=== PATIENT | female | born 2000 ===

== ENCOUNTER 2019-04-09 03:45 | Inpatient (IN) | payer MEDICAID ==
[2019-04-09] MEDS ORDERED: Butorphanol 1 MG/ML SDV IVPUSH PRN (14:44)
[2019-04-09] MEDS ORDERED: Sodium Chloride 0.9% 10 ML SDV IV PRN (14:44)
[2019-04-09] MEDS ORDERED: Water For Irrigation,Sterile 1,000 ML Container IRR PRN (14:44)
[2019-04-09] MEDS ORDERED: Sodium Chloride 0.9% 10 ML Syringe FLUSH PRN (14:44)
[2019-04-09] MEDS ORDERED: Nalbuphine 10 MG/1 ML Vial IVPUSH PRN (14:44)
[2019-04-09] MEDS ORDERED: Methylergonovine 0.2 MG/1 ML Amp IM PRN (14:44)
[2019-04-09] MEDS ORDERED: Tranexamic Acid 1,000 MG in Sodium Chloride 0.9% 100 ML IV PRN (14:44)
[2019-04-09] MEDS ORDERED: Carboprost Tromethamine 250 MCG/1 ML Amp IM PRN (14:44)
[2019-04-09] MEDS ORDERED: Terbutaline 1 MG/ML SDV SUBCUT PRN (14:44)
[2019-04-09] MEDS ORDERED: Sodium Chloride 0.9% 2.5 ML Syringe FLUSH PRN (14:44)
[2019-04-09] MEDS ORDERED: Misoprostol 200 MCG Tab PO PRN (14:44)
[2019-04-09] MEDS ORDERED: Lidocaine 1% 50 ML MDV INJECT PRN (14:44)
[2019-04-09] MEDS ORDERED: Oxytocin/0.9 % Sodium Chloride 30 UNIT/500 ML BAG IV SCH ×2 (14:45)
[2019-04-09] MEDS: Lactated Ringers 1,000 ML IV SCH ×3 (15:35→23:29)
[2019-04-09] MEDS ORDERED: Oxytocin/0.9 % Sodium Chloride 30 UNIT/500 ML BAG ONE (15:38)
[2019-04-09] MEDS ORDERED: fentaNYL 100 MCG/2 ML SDV ONE (21:41)
--- NOTE | 2019-04-09 22:33 | PCM.PREANE ---
Preanesthetic Assessment - Anesthesia/Transfusion/Family Hx Anesthesia History: No Prior Anesthesia Family History of Anesthesia Reaction: No Transfusion History: Unknown Intubation History: Unknown - Review of Systems General: No Symptoms Pulmonary: No Symptoms Cardiovascular: No Symptoms Gastrointestinal: Abdominal Pain (labor pain) Neurological: No Symptoms Other: Reports: None - Physical Assessment Height: 5 ft 6 in Weight: 96.162 kg ASA Class: 2 Mental Status: Alert & Oriented x3 Airway Class: Mallampati = 2 Dentition: Reports: Normal Dentition Thyro-Mental Finger Breadths: 3 Mouth Opening Finger Breadths: 3 ROM/Head Extension: Full Lungs: Clear to Auscultation, Normal Respiratory Effort Cardiovascular: Regular Rate, Regular Rhythm - Lab Values: Laboratory Last Values WBC 14.46 K/uL (4.0-11.0) H 04/09/19 15:03 RBC 4.41 M/uL (4.30-5.90) 04/09/19 15:03 Hgb 13.5 g/dL (12.0-16.0) 04/09/19 15:03 Hct 39.8 % (36.0-46.0) 04/09/19 15:03 MCV 90.2 fL (80.0-98.0) 04/09/19 15:03 MCH 30.6 pg (27.0-32.0) 04/09/19 15:03 MCHC 33.9 g/dL (31.0-37.0) 04/09/19 15:03 RDW Std Deviation 44.6 fl (28.0-62.0) 04/09/19 15:03 RDW Coeff of Joanna 14 % (11.0-15.0) 04/09/19 15:03 Plt Count 256 K/uL (150-400) 04/09/19 15:03 MPV 11.60 fL (7.40-12.00) 04/09/19 15:03 Nucleated RBC % 0.0 /100WBC 04/09/19 15:03 Nucleated RBCs # 0 K/uL 04/09/19 15:03 Blood Type O POSITIVE 04/09/19 15:03 Antibody Screen NEGATIVE 04/09/19 15:03 - Allergies Allergies/Adverse Reactions: Allergies Allergy/AdvReac Type Severity Reaction Status Date / Time Penicillins Allergy Nausea Verified 04/09/19 15:29 - Blood Blood Available: No - Anesthesia Plan Pre-Op Medication Ordered: None - Acknowledgements Anesthesia Type Planned: Epidural Pt an Appropriate Candidate for the Planned Anesthesia: Yes Alternatives and Risks of Anesthesia Discussed w Pt/Guardian: Yes Pt/Guardian Understands and Agrees with Anesthesia Plan: Yes PreAnesthesia Questionnaire - Past Health History Medical/Surgical History: Denies 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 Smoking Status *Q: Never Smoker Second Hand Smoke Exposure: No Recreational Drug Use History: No - CURRENT (IN HOUSE) MEDS Current Meds: Current Medications Butorphanol Tartrate (Stadol) 1 mg IVPUSH Q1H PRN PRN Reason: Pain Carboprost Tromethamine (Hemabate Ds) 250 mcg IM ASDIRECTED PRN PRN Reason: Post Hemorrhage Lactated Ringer's (Ringers, Lactated) 1,000 mls @ 150 mls/hr IV ASDIRECTED DWAIN Last Admin: 04/09/19 21:50 Dose: 150 mls/hr Oxytocin/Sodium Chloride (Oxytocin 30 Unit/500 Ml-Ns) 30 unit in 500 mls @ 500 mls/hr IV TITRATE DWAIN Oxytocin/Sodium Chloride (Oxytocin 30 Unit/500 Ml-Ns) 30 unit in 500 mls @ 2 mls/hr IV TITRATE DWAIN; Protocol Last Titration: 04/09/19 19:08 Dose: 8 munits/min, 8 mls/hr Tranexamic Acid 1,000 mg/ (Sodium Chloride) 110 mls @ 660 mls/hr IV ONETIME PRN PRN Reason: Bleeding Lidocaine HCl (Xylocaine 1%) 50 ml INJECT ONETIME PRN PRN Reason: Laceration repair Methylergonovine Maleate (Methergine) 0.2 mg IM ASDIRECTED PRN PRN Reason: Post Hemorrhage Misoprostol (Cytotec) 200 mcg PO ONETIME PRN PRN Reason: Post Hemorrhage Nalbuphine HCl (Nubain) 10 mg IVPUSH Q1H PRN PRN Reason: Pain (severe 7-10) Sodium Chloride (Saline Flush) 10 ml FLUSH ASDIRECTED PRN PRN Reason: Keep Vein Open Sodium Chloride (Saline Flush) 2.5 ml FLUSH ASDIRECTED PRN PRN Reason: Keep Vein Open Sodium Chloride (Normal Saline) 10 ml IV ASDIRECTED PRN PRN Reason: IV Use Sterile Water (Sterile Water For Irrigation) 1,000 ml IRR ASDIRECTED PRN PRN Reason: delivery Terbutaline Sulfate (Brethine) 0.25 mg SUBCUT ASDIRECTED PRN PRN Reason: Tacysystole Discontinued Medications Fentanyl (Sublimaze) Confirm Administered Dose 100 mcg .ROUTE .STK-MED ONE Stop: 04/09/19 21:42 Oxytocin/Sodium Chloride (Oxytocin 30 Unit/500 Ml-Ns) Confirm Administered Dose 30 unit in 500 mls @ as directed .ROUTE .STK-MED ONE Stop: 04/09/19 15:39
[2019-04-10] MEDS ORDERED: Acetaminophen 500 MG Tab PO PRN ×2 (04:28)
[2019-04-10] MEDS ORDERED: Ibuprofen 800 MG Tab PO PRN (04:28)
[2019-04-10] MEDS ORDERED: Benzocaine/Menthol 20%-0.5% Spray 78 GM Cannister TOP PRN (04:28)
[2019-04-10] MEDS ORDERED: Bisacodyl 10 MG Supp RECTAL PRN (04:28)
[2019-04-10] MEDS ORDERED: Docusate Sodium 100 MG Cap PO PRN (04:28)
[2019-04-10] MEDS ORDERED: Lanolin 100% Cream 7 GM Tube TOP PRN (04:28)
[2019-04-10] MEDS ORDERED: Ibuprofen 400 MG Tab PO PRN (04:28)
[2019-04-10] MEDS ORDERED: Witch Hazel Medicated Pads 40/Jar TOP PRN (04:28)
--- NOTE | 2019-04-10 04:39 | PCM.DEL ---
L & D Note - General Info Date of Service: 04/10/19 - Delivery Note Labor: Induced by ARM, Induced by Oxytocin Delivery Outcome: Livebirth Infant Delivery Method: Spontaneous Vaginal Delivery-Single Anesthesia Type: Epidural Amniotic Fluid Description: Clear Laceration: 1st Degree, Perineal Suture type: Vicryl Suture size: 3-0 Placenta: Intact, Spontaneous Cord: 3 Vessels Estimated Blood Loss: 300 Resuscitation Needed: No : Suctioned Provider: Sangeetha Florence Score 1 min: 8 Score 5 min: 9 Delivery Comments (Free Text/Narrative):: 19yo at 40w6d admitted for induction of labor due to oligohydraminos. Patient was induced with pitocin and AROM and progressed to 10/100/+1. Patient pushed with contractions with descent to 10/100/+3. head delivered over intact perineum in occiput anterior position. No nuchal cord was noted. head restituted ROT. Anterior shoulder delivered easily, followed by posterior shoulder and the remaining body. The baby was crying and pink immediately after delivery and moving all extremities. Baby was placed on maternal chest. Cord was clamped and cut after 60 seconds and no longer pulsating. Cord gases were obtained. Placenta was delivered with gentle traction. First-degree perineal laceration was noticed. 3-0 Vicryl was used to repair the laceration in the usual fashion. Bimanual exam was performed and clots removed from the lower uterine segment. Fundus was firm and at the umbilicus. Bleeding was minimal. The patient tolerated the procedure well, was given care instructions. - General Info Date of Service: 04/10/19 - Patient Data Weight - Most Recent: 212 lb Lab Results Last 24 Hours: Laboratory Results - last 24 hr 04/09/19 04/09/19 Range/Units 15:03 15:03 WBC 14.46 H (4.0-11.0) K/uL RBC 4.41 (4.30-5.90) M/uL Hgb 13.5 (12.0-16.0) g/dL Hct 39.8 (36.0-46.0) % MCV 90.2 (80.0-98.0) fL MCH 30.6 (27.0-32.0) pg MCHC 33.9 (31.0-37.0) g/dL RDW Std Deviation 44.6 (28.0-62.0) fl RDW Coeff of Joanna 14 (11.0-15.0) % Plt Count 256 (150-400) K/uL MPV 11.60 (7.40-12.00) fL Nucleated RBC % 0.0 /100WBC Nucleated RBCs # 0 K/uL Blood Type O POSITIVE Antibody Screen NEGATIVE Med Orders - Current: Current Medications Acetaminophen (Tylenol Extra Strength) 500 mg PO Q4H PRN PRN Reason: Pain Acetaminophen (Tylenol Extra Strength) 1,000 mg PO Q4H PRN PRN Reason: Pain Benzocaine/Menthol (Dermoplast Pain Relief 20%-0.5% [place]) 78 gm TOP ASDIRECTED PRN PRN Reason: Perineal Comfort Measure Bisacodyl (Dulcolax) 10 mg RECTAL ONETIME PRN PRN Reason: Constipation Butorphanol Tartrate (Stadol) 1 mg IVPUSH Q1H PRN PRN Reason: Pain Carboprost Tromethamine (Hemabate Ds) 250 mcg IM ASDIRECTED PRN PRN Reason: Post Hemorrhage Docusate Sodium (Colace) 100 mg PO BID PRN PRN Reason: Constipation Emollient Ointment (Lansinoh Hpa) 0 gm TOP ASDIRECTED PRN PRN Reason: Sore Nipples Lactated Ringer's (Ringers, Lactated) 1,000 mls @ 150 mls/hr IV ASDIRECTED DWAIN Last Admin: 04/09/19 23:29 Dose: 150 mls/hr Oxytocin/Sodium Chloride (Oxytocin 30 Unit/500 Ml-Ns) 30 unit in 500 mls @ 500 mls/hr IV TITRATE DWAIN Oxytocin/Sodium Chloride (Oxytocin 30 Unit/500 Ml-Ns) 30 unit in 500 mls @ 2 mls/hr IV TITRATE [facility]; Protocol Last Titration: 04/10/19 03:45 Dose: 999 munits/min, 999 mls/hr Tranexamic Acid 1,000 mg/ (Sodium Chloride) 110 mls @ 660 mls/hr IV ONETIME PRN PRN Reason: Bleeding Ibuprofen (Motrin) 400 mg PO Q4H PRN PRN Reason: Pain Ibuprofen (Motrin) 800 mg PO Q6H PRN PRN Reason: Pain Lidocaine HCl (Xylocaine 1%) 50 ml INJECT ONETIME PRN PRN Reason: Laceration repair Methylergonovine Maleate (Methergine) 0.2 mg IM ASDIRECTED PRN PRN Reason: Post Hemorrhage Misoprostol (Cytotec) 200 mcg PO ONETIME PRN PRN Reason: Post Hemorrhage Nalbuphine HCl (Nubain) 10 mg IVPUSH Q1H PRN PRN Reason: Pain (severe 7-10) Sodium Chloride (Saline Flush) 10 ml FLUSH ASDIRECTED PRN PRN Reason: Keep Vein Open Sodium Chloride (Saline Flush) 2.5 ml FLUSH ASDIRECTED PRN PRN Reason: Keep Vein Open Sodium Chloride (Normal Saline) 10 ml IV ASDIRECTED PRN PRN Reason: IV Use Sterile Water (Sterile Water For Irrigation) 1,000 ml IRR ASDIRECTED PRN PRN Reason: delivery Last Admin: 04/10/19 03:37 Dose: 1,000 ml Terbutaline Sulfate (Brethine) 0.25 mg SUBCUT ASDIRECTED PRN PRN Reason: Tacysystole [place] Nichole (Tucks) 1 pad TOP ASDIRECTED PRN PRN Reason: comfort care Discontinued Medications Fentanyl (Sublimaze) Confirm Administered Dose 100 mcg .ROUTE .STK-MED ONE Stop: 04/09/19 21:42 Oxytocin/Sodium Chloride (Oxytocin 30 Unit/500 Ml-Ns) Confirm Administered Dose 30 unit in 500 mls @ as directed .ROUTE .STK-MED ONE Stop: 04/09/19 15:39 - Problem List Review Problem List Initiated/Reviewed/Updated: Yes - My Orders Last 24 Hours: My Active Orders 04/10/19 04:28 Urinary Catheter Removal [RC] Per Unit Routine Acetaminophen [Tylenol Extra Strength] 1,000 mg PO Q4H PRN Acetaminophen [Tylenol Extra Strength] 500 mg PO Q4H PRN Benzocaine/Menthol [Dermoplast Pain Relief 20%-0.5% [place]] 78 gm TOP ASDIRECTED PRN Bisacodyl [Dulcolax] 10 mg RECTAL ONETIME PRN Docusate Sodium [Colace] 100 mg PO BID PRN Ibuprofen [Motrin] 400 mg PO Q4H PRN Ibuprofen [Motrin] 800 mg PO Q6H PRN Lanolin [Lansinoh HPA] See Dose Instructions TOP ASDIRECTED PRN Witch Nichole [Tucks] 1 pad TOP ASDIRECTED PRN Breast Pump [WOMSER] Per Unit Routine 04/10/19 04:29 Patient Status [ADT] Routine May Shower [RC] ASDIRECTED Up ad Devora [RC] ASDIRECTED Vital Signs [RC] PER UNIT ROUTINE Assess Lochia [WOMSER] Per Unit Routine Assess Uterine Involution [WOMSER] Per Unit Routine Ice Therapy [OM.PC] Per Unit Routine Perineal Care [OM.PC] Per Unit Routine Peripheral IV Discontinue [OM.PC] Routine Sitz Bath [OM.PC] Per Unit Routine 04/10/19 Breakfast Regular Diet [DIET] 04/11/19 05:11 HEMOGLOBIN/HEMATOCRIT,HH [HEME] Timed
--- NOTE | 2019-04-10 09:35 | PCM48HPAN ---
Post Anesthesia Note - EVALUATION WITHIN 48HRS OF ANESTHETIC Vital Signs in Normal Range: Yes Patient Participated in Evaluation: Yes Respiratory Function Stable: Yes Airway Patent: Yes Cardiovascular Function Stable: Yes Hydration Status Stable: Yes Pain Control Satisfactory: Yes Nausea and Vomiting Control Satisfactory: Yes Mental Status Recovered: Yes Vital Signs: Last Vital Signs Temp 36.5 C 04/10/19 08:00 Pulse 87 04/10/19 08:00 Resp 20 04/10/19 08:00 BP 130/76 04/10/19 08:00 Pulse Ox 97 04/10/19 08:00 - COMMENTS/OBSERVATIONS Free Text/Narrative:: no anesthesia problems
--- NOTE | 2019-04-11 08:39 | PCM.PNPP ---
- General Info Date of Service: 04/11/19 Functional Status: Reports: Pain Controlled, Tolerating Diet, Ambulating, Urinating - Review of Systems General: Denies: Fever, Weakness, Fatigue Pulmonary: Denies: Shortness of Breath Cardiovascular: Denies: Chest Pain, Palpitations, Lightheadedness Gastrointestinal: Denies: Abdominal Pain, Nausea, Vomiting Genitourinary: Denies: Flank Pain Musculoskeletal: Reports: No Symptoms Skin: Reports: No Symptoms Neurological: Reports: No Symptoms Psychiatric: Reports: No Symptoms - General Info Date of Service: 04/11/19 - Patient Data Vital Signs - Most Recent: Last Vital Signs Temp 36.6 C 04/11/19 07:00 Pulse 72 04/11/19 07:00 Resp 16 04/11/19 07:00 BP 113/61 04/11/19 07:00 Pulse Ox 98 04/11/19 07:00 Weight - Most Recent: 96.162 kg Lab Results - Last 24 Hours: Laboratory Results - last 24 hr 04/11/19 Range/Units 06:35 Hgb 12.3 (12.0-16.0) g/dL Hct 37.7 (36.0-46.0) % Med Orders - Current: Current Medications Acetaminophen (Tylenol Extra Strength) 500 mg PO Q4H PRN PRN Reason: Pain Acetaminophen (Tylenol Extra Strength) 1,000 mg PO Q4H PRN PRN Reason: Pain Benzocaine/Menthol (Dermoplast Pain Relief 20%-0.5% [place]) 78 gm TOP ASDIRECTED PRN PRN Reason: Perineal Comfort Measure Last Admin: 04/10/19 04:38 Dose: 1 canister Bisacodyl (Dulcolax) 10 mg RECTAL ONETIME PRN PRN Reason: Constipation Butorphanol Tartrate (Stadol) 1 mg IVPUSH Q1H PRN PRN Reason: Pain Carboprost Tromethamine (Hemabate Ds) 250 mcg IM ASDIRECTED PRN PRN Reason: Post Hemorrhage Docusate Sodium (Colace) 100 mg PO BID PRN PRN Reason: Constipation Emollient Ointment (Lansinoh Hpa) 0 gm TOP ASDIRECTED PRN PRN Reason: Sore Nipples Lactated Ringer's (Ringers, Lactated) 1,000 mls @ 150 mls/hr IV ASDIRECTED DWAIN Last Admin: 04/09/19 23:29 Dose: 150 mls/hr Oxytocin/Sodium Chloride (Oxytocin 30 Unit/500 Ml-Ns) 30 unit in 500 mls @ 500 mls/hr IV TITRATE DWAIN Oxytocin/Sodium Chloride (Oxytocin 30 Unit/500 Ml-Ns) 30 unit in 500 mls @ 2 mls/hr IV TITRATE DWAIN; Protocol Last Titration: 04/10/19 03:45 Dose: 999 munits/min, 999 mls/hr Tranexamic Acid 1,000 mg/ (Sodium Chloride) 110 mls @ 660 mls/hr IV ONETIME PRN PRN Reason: Bleeding Ibuprofen (Motrin) 400 mg PO Q4H PRN PRN Reason: Pain Ibuprofen (Motrin) 800 mg PO Q6H PRN PRN Reason: Pain Lidocaine HCl (Xylocaine 1%) 50 ml INJECT ONETIME PRN PRN Reason: Laceration repair Methylergonovine Maleate (Methergine) 0.2 mg IM ASDIRECTED PRN PRN Reason: Post Hemorrhage Misoprostol (Cytotec) 200 mcg PO ONETIME PRN PRN Reason: Post Hemorrhage Nalbuphine HCl (Nubain) 10 mg IVPUSH Q1H PRN PRN Reason: Pain (severe 7-10) Sodium Chloride (Saline Flush) 10 ml FLUSH ASDIRECTED PRN PRN Reason: Keep Vein Open Sodium Chloride (Saline Flush) 2.5 ml FLUSH ASDIRECTED PRN PRN Reason: Keep Vein Open Sodium Chloride (Normal Saline) 10 ml IV ASDIRECTED PRN PRN Reason: IV Use Sterile Water (Sterile Water For Irrigation) 1,000 ml IRR ASDIRECTED PRN PRN Reason: delivery Last Admin: 04/10/19 03:37 Dose: 1,000 ml Terbutaline Sulfate (Brethine) 0.25 mg SUBCUT ASDIRECTED PRN PRN Reason: Tacysystole Witch Nichole (Tucks) 1 pad TOP ASDIRECTED PRN PRN Reason: comfort care Last Admin: 04/10/19 04:38 Dose: 1 tub Discontinued Medications Fentanyl (Sublimaze) Confirm Administered Dose 100 mcg .ROUTE .STK-MED ONE Stop: 04/09/19 21:42 Last Admin: 04/09/19 21:45 Dose: 100 mcg Oxytocin/Sodium Chloride (Oxytocin 30 Unit/500 Ml-Ns) Confirm Administered Dose 30 unit in 500 mls @ as directed .ROUTE .STK-MED ONE Stop: 04/09/19 15:39 - Infant Interaction Support Person: Mother - Recovery Exam Fundal Tone: Firm Fundal Level: 1 Fingerbreadths Below Umbilicus Fundal Placement: Midline Lochia Amount: Scant Lochia Color: Rubra/Red Perineum Description: Other (see below) Other Perinuem Description: 1st deg laceration Episiotomy/Laceration: Approximated Bladder Status: Nonpalpable, Voiding Urinary Elimination: Voided - Exam General: Alert, Oriented Lungs: Normal Respiratory Effort Cardiovascular: Regular Rate, Regular Rhythm GI/Abdominal Exam: Normal Bowel Sounds, Soft Extremities: Pedal Edema (trace). No: Cira's Sign Skin: Warm, Dry, Intact Neurological: No New Focal Deficit Psy/Mental Status: Alert, Normal Affect, Normal Mood - Problem List & Annotations (1) Vaginal delivery SNOMED Code(s): 492724435 Code(s): O80 - ENCOUNTER FOR FULL-TERM UNCOMPLICATED DELIVERY Status: Acute Current Visit: Yes - Problem List Review Problem List Initiated/Reviewed/Updated: Yes - My Orders Last 24 Hours: My Active Orders 04/11/19 08:37 Ready for Discharge [RC] PER UNIT ROUTINE - Assessment Assessment:: PPD 1 status post - Plan Plan:: Patient doing wel loverall, VS and labs are reassuring. Patient would like to go home today. Discharge instructions reviewed. Follow up at [facility] 6 weeks. Discharge to home today.
== END 2019-04-11 13:43 | disposition home or self-care (01) | DRG 807 ==
LOC: MW.OB 03:45 → OBSVTOIN 04-10 03:45 → MW.OB 04-10 09:50
PROVIDERS: ADMIT Obstetrics & Gynecology; ATTEND Obstetrics & Gynecology
PROC: 10E0XZZ Delivery of Products of Conception, External Approach (ICD-10-PCS; principal; 2019-04-10)
PROC: 10907ZC Drainage of Amniotic Fluid, Therapeutic from Products of Conception, Via Natural or Artificial Opening (ICD-10-PCS; 2019-04-10)
PROC: 3E033VJ Introduction of Other Hormone into Peripheral Vein, Percutaneous Approach (ICD-10-PCS; 2019-04-10)
PROC: 0HQ9XZZ Repair Perineum Skin, External Approach (ICD-10-PCS; 2019-04-10)
PROC: 10H07YZ Insertion of Other Device into Products of Conception, Via Natural or Artificial Opening (ICD-10-PCS; 2019-04-10)
PROC: 10H073Z Insertion of Monitoring Electrode into Products of Conception, Via Natural or Artificial Opening (ICD-10-PCS; 2019-04-10)
PROC: 4A1H7CZ Monitoring of Products of Conception, Cardiac Rate, Via Natural or Artificial Opening (ICD-10-PCS; 2019-04-10)
DX: O41.03X0 Oligohydramnios, third trimester, not applicable or unspecified (principal); O48.0 Post-term pregnancy; O70.0 First degree perineal laceration during delivery; O76 Abnormality in fetal heart rate and rhythm complicating labor and delivery; Z3A.40 40 weeks gestation of pregnancy; Z37.0 Single live birth
CPT/HCPCS: 01967; 36415; 51702; 59025; 59409; 85014; 85018; 85027; 86850; 86900; 86901; A9270-GY; J2590; J3010; J7120

== ENCOUNTER 2023-08-10 00:08 | Observation (INO) | payer MEDICAID ==
[2023-08-10] MEDS ORDERED: Lidocaine 1% 50 ML MDV INJECT PRN (00:22)
[2023-08-10] MEDS ORDERED: Tranexamic Acid IN NACL,ISO-OS 1,000 MG in Premix Bag 1 BAG IV PRN ×4 (00:22→16:02)
[2023-08-10] MEDS ORDERED: Methylergonovine 0.2 MG/1 ML Amp IM PRN ×2 (00:22→16:02)
[2023-08-10] MEDS ORDERED: Sodium Chloride 0.9% 20 ML SDV IV PRN (00:22)
[2023-08-10] MEDS ORDERED: Misoprostol 25 MCG (1/4 of 100 MCG) Tab VAG PRN ×2 (00:22)
[2023-08-10] MEDS ORDERED: Misoprostol 200 MCG Tab PO PRN (00:22)
[2023-08-10] MEDS ORDERED: Terbutaline 1 MG/ML SDV SUBCUT PRN (00:22)
[2023-08-10] MEDS ORDERED: Water For Irrigation,Sterile 1,000 ML Container IRR PRN (00:22)
[2023-08-10] MEDS ORDERED: Carboprost Tromethamine 250 MCG/1 mL Vial IM PRN (00:22)
[2023-08-10] MEDS ORDERED: Sodium Chloride 0.9% 2.5 ML Syringe FLUSH PRN (00:22)
[2023-08-10] MEDS ORDERED: Sodium Chloride 0.9% 10 ML Syringe FLUSH PRN (00:22)
[2023-08-10] MEDS ORDERED: Nalbuphine 10 MG/0.5 ML Syringe IVPUSH PRN (00:22)
[2023-08-10] MEDS ORDERED: Ondansetron 4 MG/2 ML SDV IVPUSH PRN (00:22)
[2023-08-10] MEDS ORDERED: Oxytocin/0.9 % Sodium Chloride 30 UNIT/500 ML BAG IV SCH ×2 (00:30)
[2023-08-10] MEDS: Lactated Ringers 1,000 ML IV SCH ×4 (00:50→13:35)
[2023-08-10 00:58] LABS: HEMATOCRIT 32.2 % (37.0-47.0); HEMOGLOBIN 10.9 g/dL (12.0-16.0); MEAN CORPUSCULAR HGB CONC 33.9 g/dL (32.0-36.0); MEAN CORPUSCULAR VOLUME 85.6 fL (83.0-99.0); MEAN PLATELET VOLUME 11.2 fL (9.4-12.3); PLATELET COUNT,PLT 287 K/uL (150-400); RED BLOOD CELL COUNT 3.76 M/uL (4.10-5.30)
[2023-08-10] MEDS ORDERED: ePHEDrine 50 MG/ML SDV IVPUSH PRN ×2 (07:45)
[2023-08-10] MEDS ORDERED: Ropivacaine HCl/PF 400 MG in Premix Bag 1 BAG EPIDUR SCH (07:45)
[2023-08-10] MEDS ORDERED: Phenylephrine HCl 0.5 MG/5 ML AMP IVPUSH PRN (07:45)
[2023-08-10] MEDS ORDERED: dexmedeTOMIDine HCl 200 MCG/2 ML SDV ONE (12:21)
[2023-08-10] MEDS ORDERED: Witch Hazel Medicated Pads 40/Jar TOP PRN (16:02)
[2023-08-10] MEDS ORDERED: Docusate Sodium 100 MG Cap PO PRN (16:02)
[2023-08-10] MEDS ORDERED: Ibuprofen 800 MG Tab PO PRN (16:02)
[2023-08-10] MEDS ORDERED: Acetaminophen 500 MG Tab PO PRN (16:02)
[2023-08-10] MEDS ORDERED: Lanolin 100% Cream 7 GM Tube TOP PRN (16:02)
[2023-08-10] MEDS ORDERED: Benzocaine/Menthol 20%-0.5% Spray 78 GM Cannister TOP PRN (16:02)
[2023-08-10 16:27] LABS: PH,UMBILICAL ARTERIAL 7.244 (7.18-7.38); PH,UMBILICAL VENOUS 7.317 (7.25-7.45)
[2023-08-11 06:34] LABS: HEMATOCRIT 32.4 % (37.0-47.0); HEMOGLOBIN 10.8 g/dL (12.0-16.0)
== END 2023-08-12 13:34 | disposition home or self-care (01) ==
LOC: MW.OBCHECK 00:08 → MW.OB 00:09 → MW.OBCHECK 15:41 → MW.OB 15:43
PROVIDERS: ADMIT Obstetrics & Gynecology; ATTEND Obstetrics & Gynecology
DX: O98.82 Other maternal infectious and parasitic diseases complicating childbirth (principal); O75.9 Complication of labor and delivery, unspecified; O69.81X0 Labor and delivery complicated by cord around neck, without compression, not applicable or unspecified; O36.8390 Maternal care for abnormalities of the fetal heart rate or rhythm, unspecified trimester, not applicable or unspecified
CPT/HCPCS: 36415; 51702; 59025; 59409; 82803; 85014; 85018; 85027; 86592; 86850; 86900; 86901; A9270; J2590; J2795; J3370; J7050; J7120; J3490